=== PATIENT | female | born 1980 | race Caucasian/White ===

== ENCOUNTER 2018-10-20 14:31 | Emergency (ER) | payer OTHER ==
[~2018-10-20] VITALS: Ht 177.8 cm; Wt 74.8 kg
[2018-10-20 16:14] LABS: BASOPHILS % (AUTO) 0.5 % (0.0-2.0); EOSINOPHILS % (AUTO) 3.5 % (0.0-3.0); HEMATOCRIT 39.3 % (37.0-47.0); HEMOGLOBIN 13.6 G/DL (12.0-16.0); LYMPHOCYTES % (AUTO) 32.2 % (20.0-45.0); MEAN CORPUSCULAR VOLUME 90 FL (80-99); MONOCYTES % (AUTO) 7.9 % (1.0-10.0); NEUTROPHILS % (AUTO) 55.8 % (45.0-75.0); PLATELET COUNT 241 K/UL (150-450); RED BLOOD COUNT 4.36 M/UL (4.20-5.40); RED CELL DISTRIBUTION WIDTH 10.2 % (11.6-14.8); WHITE BLOOD COUNT 9.1 K/UL (4.8-10.8)
[2018-10-20 16:17] LABS: APPEARANCE,URINE CLEAR; BILIRUBIN, URINE NEGATIVE (NEGATIVE); COLOR,URINE PALE YELLOW; GLUCOSE, URINE (UA) NEGATIVE (NEGATIVE); KETONES,URINE 1+ (NEGATIVE); LEUKOCYTE ESTERASE ,URINE NEGATIVE (NEGATIVE); NITRITE,URINE NEGATIVE (NEGATIVE); PH,URINE 7 (4.5-8.0); PROTEIN,URINE NEGATIVE (NEGATIVE); UROBILINOGEN,URINE NORMAL MG/DL (0.0-1.0)
--- NOTE | 2018-10-20 16:59 | Diagnostic Imaging Report ---
Indication: Vaginal bleeding. 6 weeks Technique: Grayscale and duplex Doppler imaging of the pelvis performed utilizing a transabdominal scan and endovaginal scan. Comparison: None Findings: Saccular structure noted with a yolk sac within the uterus indicative of an intrauterine . There is no pole identified at this time. Based on mean sac diameter measurements gestational age is estimated at 5 weeks 5 days. This is on endovaginal scan images. This could still represent a normal early IUP given the small sac diameter. Recommend repeat ultrasound in one to 2 weeks and the follow up quantitative beta-hCG. The other possibility is a incomplete spontaneous . Trace free fluid noted within the cul-de-sac. Left ovary not seen. Right ovary normal by Doppler measuring 2.3 x 1.5 x 2.9 cm. IMPRESSION: Evidence of an intrauterine . Viability unknown at this time. Findings may reflect early IUP versus incomplete spontaneous . Follow-up recommended.
--- NOTE | 2018-10-20 17:29 | Emergency Room Report ---
History of Present Illness General Chief Complaint: Complications Source: Patient Present Illness HPI 38-year-old female presents to the emergency department complaining of scant vaginal bleeding x24 hours during 6-week of . Patient denies abdominal pain or cramping. Patient denies vaginal discharge otherwise she denies external genital lesions or swollen tender lymph nodes. Patient denies fevers or chills. Patient reports that she is G1, P0 and states that this current is a result of IVF. Denies dysuria, hematuria or urinary frequency. She does not know what blood type she is. Allergies: Coded Allergies: AZITHROMYCIN (Verified Allergy, Unknown, 10/20/18) Patient History Past Medical History: see triage record Past Surgical History: none Pertinent Family History: none Now: Yes Reviewed Nursing Documentation: PMH: Agreed; PSxH: Agreed Nursing Documentation-PMH Past Medical History: No Stated History Review of Systems All Other Systems: negative except mentioned in HPI Physical Exam Vital Signs Date Time Temp Pulse Resp B/P (MAP) Pulse Ox O2 Delivery O2 Flow Rate FiO2 10/20/18 14:33 97.7 100 18 112/79 (90) 99 Room Air Sp02 EP Interpretation: reviewed, normal General Appearance: no apparent distress, alert, GCS 15, non-toxic Head: normocephalic, atraumatic Eyes: bilateral eye normal inspection, bilateral eye PERRL ENT: hearing grossly normal, normal voice Neck: full range of motion Respiratory: lungs clear, normal breath sounds, speaking full sentences Cardiovascular #1: regular rate, rhythm Gastrointestinal: normal bowel sounds, non tender, soft, non-distended, no guarding Genitourinary: normal inspection, no CVA tenderness, cervix normal, ext genitalia/vag normal, other - scant amount of blood bright red/brown in keven vaginal vault. the OS is closed. Musculoskeletal: back normal, gait/station normal, normal range of motion, non- tender Neurologic: alert, oriented x3, responsive, motor strength/tone normal, sensory intact, speech normal, grossly normal Psychiatric: judgement/insight normal Lymphatic: no adenopathy Medical Decision Making PA Attestation Dr. Woodruff is my supervising Physician whom patient management has been discussed with. Diagnostic Impression: Primary Impression: Vaginal bleeding affecting early Additional Impression: Threatened miscarriage in early ER Course 38-year-old female presents to the emergency department complaining of scant vaginal bleeding x24 hours during 6-week of . Patient denies abdominal pain or cramping. Patient denies vaginal discharge otherwise she denies external genital lesions or swollen tender lymph nodes. Patient denies fevers or chills. Patient reports that she is G1, P0 and states that this current is a result of IVF. Denies dysuria, hematuria or urinary frequency. She does not know what blood type she is. Ddx considered but are not limited to: Fibroid, ectopic , Fibroid, Spontaneous , Vital signs: are WNL, pt. is afebrile H&PE are most consistent with: spotting during early , threatened miscarriage ORDERS: -ABO/RH : B POSITIVE -serum Hcg Quant: 42,993 -Pelvic US complete-"Evidence of IUP. Viability unknown. Findings may reflect early IUP versus incomplete spontaneous . Follow-up recommended. Saccular structure noted with a yolk sac there is no pole identified at this time sac diameter measurements gestational age at approximately 5 weeks 5 days. This can still represent a normal early IUP given the small sac diameter. " per official radiology report - Please see report for specific details. ED INTERVENTIONS: None at this time. D/w pt. Close OBGYN f/u with repeat Hcg and US. given ED return precautions for increased and prolonged bleeding. DISCHARGE: At this time pt. is stable for d/c to home. Will provide printed patient care instructions, and any necessary prescriptions. Care plan and follow up instructions have been discussed with the patient prior to discharge. Labs Test 10/20/18 15:48 10/20/18 16:06 White Blood Count 9.1 K/UL (4.8-10.8) Red Blood Count 4.36 M/UL (4.20-5.40) Hemoglobin 13.6 G/DL (12.0-16.0) Hematocrit 39.3 % (37.0-47.0) Mean Corpuscular Volume 90 FL (80-99) Mean Corpuscular Hemoglobin 31.1 PG (27.0-31.0) Mean Corpuscular Hemoglobin Concent 34.5 G/DL (32.0-36.0) Red Cell Distribution Width 10.2 % (11.6-14.8) Platelet Count 241 K/UL (150-450) Mean Platelet Volume 7.5 FL (6.5-10.1) Neutrophils (%) (Auto) 55.8 % (45.0-75.0) Lymphocytes (%) (Auto) 32.2 % (20.0-45.0) Monocytes (%) (Auto) 7.9 % (1.0-10.0) Eosinophils (%) (Auto) 3.5 % (0.0-3.0) Basophils (%) (Auto) 0.5 % (0.0-2.0) Human Chorionic Gonadotropin, Quant 67476 mIU/mL (1-6) Urine Color Pale yellow Urine Appearance Clear Urine pH 7 (4.5-8.0) Urine Specific [place] 1.010 (1.005-1.035) Urine Protein Negative (NEGATIVE) Urine Glucose (UA) Negative (NEGATIVE) Urine Ketones 1+ (NEGATIVE) Urine Blood Negative (NEGATIVE) Urine Nitrite Negative (NEGATIVE) Urine Bilirubin Negative (NEGATIVE) Urine Urobilinogen Normal MG/DL (0.0-1.0) Urine Leukocyte Esterase Negative (NEGATIVE) CT/MRI/US Diagnostic Results CT/MRI/US Diagnostic Results : Imaging Test Ordered: OB US Impression "Evidence of IUP. Viability unknown. Findings may reflect early IUP versus incomplete spontaneous . Follow-up recommended. Saccular structure noted with a yolk sac there is no pole identified at this time sac diameter measurements gestational age at approximately 5 weeks 5 days. This can still represent a normal early IUP given the small sac diameter." per official radiology report - Please see report for specific details. Last Vital Signs Date Time Temp Pulse Resp B/P (MAP) Pulse Ox O2 Delivery O2 Flow Rate FiO2 10/20/18 14:33 97.7 100 18 112/79 (90) 99 Room Air Disposition: HOME, SELF-CARE Condition: Stable Referrals: NOT CHOSEN IPA/MD,REFERRING (PCP) Patient Instructions: Vaginal Bleeding During , First Trimester, Easy- to-Read Additional Instructions: Take any previously prescribed medications as directed. Limit strenuous activities and walking/ ---- BED REST is best. Follow up with a OBGYN within 3 days, even if your symptoms have resolved. REPEAT HCG. REPEAT ULTRASOUND in APPROX. 2 Weeks. Return sooner to ED if new symptoms occur, or current symptoms become worse. - Please note that this Emergency Department Report was dictated using [employer] pipe maker technology software, occasionally this can lead to erroneous entry secondary to interpretation by the dictation equipment. Manisha Burciaga Oct 20, 2018 17:29
[2018-10-20 17:33] VITALS: BP 115/74
== END 2018-10-20 17:33 | disposition home or self-care (01) ==
LOC: EMR 15:08
DX: O20.0 Threatened abortion (principal); Z3A.01 Less than 8 weeks gestation of pregnancy; Z88.8 Allergy status to other drugs, medicaments and biological substances
CPT/HCPCS: 36415; 76801; 76830; 81003; 84702; 85025; 86900; 86901; 99284